=== PATIENT | male | born 1995 | race Caucasian/White ===

== ENCOUNTER 2020-11-13 19:27 | Outpatient (CLI) | payer MEDICAID | END 2020-11-14 06:45 | disposition home or self-care (01) | LOC: SLEEP 19:27 | PROVIDERS: ATTEND Nurse Practitioner Community Health | DX: G47.33 Obstructive sleep apnea (adult) (pediatric) (principal); F51.01 Primary insomnia; F90.9 Attention-deficit hyperactivity disorder, unspecified type; E66.9 Obesity, unspecified | CPT/HCPCS: 95810 ==